=== PATIENT | female | born 1995 | race Caucasian/White ===

== ENCOUNTER 2018-12-20 10:23 | Emergency (ER) | payer MEDICAID, OTHER ==
[~2018-12-20] VITALS: Ht 162.6 cm; Wt 61.0 kg
[~2018-12-20 10:23] MED LIST: IBUP-1542 PO; ONDA4TAB14 PO; OXYC15TA PO; TRAM50TA2 PO
[2018-12-20 10:29] VITALS: Ht 162.6 cm; Wt 61.0 kg
[2018-12-20] MEDS ORDERED: KETOROLAC 30 MG INJ IM STA (10:49)
[2018-12-20] MEDS ORDERED: ONDANSETRON (ODT) 4 MG TAB ODT STA (10:49)
[2018-12-20 12:23] VITALS: BP 110/64; PULSE 76; RESP 16
== END 2018-12-20 12:24 | disposition home or self-care (01) ==
LOC: FTE 10:23
DX: R10.13 Epigastric pain (principal)
CPT/HCPCS: 81001; 81025; 96372; J1885; Z7502; Z7610